=== PATIENT | male | born 1945 | race Hispanic/Latino ===

== ENCOUNTER 2017-12-09 05:47 | Observation (INO) | payer OTHER ==
[2017-12-05 13:06] VITALS: BP 138/60
[2017-12-05 13:11] LABS: BASOPHILS % (AUTO) 0.4 % (0.0-5.0); EOSINOPHILS % (AUTO) 2.8 % (0.0-8.0); HEMATOCRIT 36.8 % (42-54); LYMPHOCYTES % (AUTO) 11.9 % (21.0-51.0); MEAN CORPUSCULAR HGB CONC 31.4 g/dL (32.0-36.0); MEAN CORPUSCULAR VOLUME 82.8 fL (79-99); NEUTROPHILS % (AUTO) 73.9 % (40.0-77.0); PLATELET COUNT (AUTO) 120 K/uL (130-400); RED BLOOD CELL COUNT(AUTO) 4.45 MIL/uL (4.50-6.20); RED CELL DISTRIBUTION WIDTH 18.5 % (11.0-15.5); WHITE BLOOD COUNT (AUTO) 5.1 K/uL (4.8-10.8)
[2017-12-05 13:18] LABS: CREATININE 1.7 mg/dL (0.5-1.5)
[2017-12-05 13:33] LABS: APPEARANCE,URINE Clear (CLEAR); BILIRUBIN,URINE Negative (NEGATIVE); COLOR,URINE Yellow (YELLOW); GLUCOSE, URINE (UA) Negative (NEGATIVE); KETONES,URINE Negative (NEGATIVE); LEUKOCYTE ESTERASE ,URINE Trace (NEGATIVE); NITRATE,URINE Negative (NEGATIVE); OCCULT BLOOD,URINE Negative (NEGATIVE); PROTEIN,URINE Trace (NEGATIVE)
[2017-12-05 13:39] LABS: PROTHROMBIN TIME 10.5 SEC (9.6-11.6)
[2017-12-05 13:49] LABS: BACTERIA,URINE Rare /HPF (None Seen); RBC,URINE None Seen /HPF (0-1); WBC,URINE 0-1 /HPF (0-1)
[2017-12-05 13:50] LABS: SQUAMOUS EPITHELIAL CELL,UR 0-2 /HPF (0-2)
[~2017-12-09] VITALS: Ht 170.2 cm; Wt 70.0 kg
[2017-12-09] VITALS (13 sets, daily range): BP systolic 124–157; BP diastolic 75–104
[~2017-12-09 05:47] MED LIST: ACETAMINOPHEN 325 MG TAB PO PRN; AEC81 PO; ATOR40TA71 PO; CLOP75TA14 PO; FERR325T22 PO; ISOS30TA6 PO; LABE200T5 PO; LINA5TAB PO; LISI-613 PO; NITR.4 SL; PANT40TA25 PO; RANI150C4 PO; SODIUM CHLORIDE 0.9% 500ML 500 ML IV SCH
[2017-12-09] MEDS ORDERED: SODIUM CHLORIDE 0.9% 1000ML 1,000 ML IV SCH (06:00)
[2017-12-09] MEDS ORDERED: LABETALOL HCL 5 MG/ML 20ML VIAL IV ONE ×3 (07:37→16:17)
[2017-12-09] MEDS ORDERED: LABETALOL HCL 5 MG/ML 20ML VIAL IV SCH (07:45)
[2017-12-09] MEDS ORDERED: ONDANSETRON HCL 4 MG/2 ML VIAL ONE (09:18)
[2017-12-09 09:54] LABS: CREATININE 1.6 mg/dL (0.5-1.5); MAGNESIUM 1.7 mg/dL (1.80-2.40); POTASSIUM 5.9 mmol/L (3.5-5.1)
[2017-12-09 10:43] LABS: CREATININE 1.6 mg/dL (0.5-1.5); MAGNESIUM 1.7 mg/dL (1.80-2.40); POTASSIUM 5.7 mmol/L (3.5-5.1)
[2017-12-09] MEDS ORDERED: MAGNESIUM 2GM PREMIX 50ML 50 ML IV SCH (11:00)
[2017-12-09] MEDS ORDERED: LOPERAMIDE HCL 2 MG CAP PO SCH (11:15)
[2017-12-09] MEDS ORDERED: LIDOCAINE HCL-MPF 2% 5ML VIAL ONE (13:59)
[2017-12-09] MEDS ORDERED: IOHEXOL-350 50ML VIAL IV ONE (13:59)
[2017-12-09] MEDS ORDERED: IOHEXOL 350 MG/ML 100ML INFUS..BTL IV ONE (13:59)
[2017-12-09] MEDS ORDERED: NITROGLYCERIN 5 MG/ML 10 ML VIAL IV ONE (13:59)
[2017-12-09] MEDS ORDERED: SODIUM BICARB 50MEQ 50ML VIAL ONE (14:07)
[2017-12-09] MEDS ORDERED: MIDAZOLAM HCL 1 MG/ML 2ML VIAL ONE ×2 (14:57→15:29)
[2017-12-09] MEDS ORDERED: MEPERIDINE-PF 25 MG/ML SYG ONE ×2 (14:57→15:29)
[2017-12-09] MEDS ORDERED: HEPARIN SODIUM 1000UNIT/ML 10ML VIAL ONE (14:58)
[2017-12-09] MEDS ORDERED: IOHEXOL-350 75 ML VIAL IV ONE (15:02)
[2017-12-09] MEDS ORDERED: DEXTROSE 50%-WATER 50 ML DISP.SYRIN IV PRN (16:30)
[2017-12-09] MEDS ORDERED: GLUCAGON 1MG KIT 1 MG ML IM PRN (16:30)
[2017-12-09] MEDS: INSULIN HUMULIN R 100 UNIT/ML 3ML SQ SCH ×2 (16:30→21:00)
[2017-12-09] MEDS ORDERED: NITROGLYCERIN 0.4 MG SL TAB SL SCH (16:30)
[2017-12-09] MEDS ORDERED: ACETAMINOPHEN-CODEINE 300/30MG TAB PO PRN ×2 (16:30)
[2017-12-09] MEDS ORDERED: ONDANSETRON HCL 4 MG/2 ML VIAL IVP PRN (16:30)
[2017-12-09] MEDS ORDERED: LABETALOL HCL 5 MG/ML 20ML VIAL IV PRN (16:45)
[2017-12-09] MEDS ORDERED: MORPHINE SULFATE 5 MG/ML VIAL IV PRN (17:15)
[2017-12-09] MEDS ORDERED: MORPHINE SULFATE 4 MG/1ML SYG IV PRN (17:15)
[2017-12-09] MEDS ORDERED: FAMOTIDINE 20MG TAB 20 MG TAB PO SCH (21:00)
[2017-12-09] MEDS: AMLODIPINE BESYLATE 5 MG TAB PO SCH (21:05)
[2017-12-09] MEDS: LABETALOL HCL 200 MG TABLET PO SCH (21:05)
[2017-12-10] VITALS: BP 131/71
[2017-12-10 03:41] VITALS: BP 101/71
[2017-12-10 04:05] LABS: HEMATOCRIT 35.8 % (42-54); MEAN CORPUSCULAR HEMOGLOBIN 27.1 pg (27.0-33.0); MEAN CORPUSCULAR HGB CONC 32.9 g/dL (32.0-36.0); MEAN CORPUSCULAR VOLUME 82.3 fL (79-99); NUCLEATED RED BLOOD CELLS 0.1 % (0.0-0.19); PLATELET COUNT (AUTO) 99 K/uL (130-400); RED BLOOD CELL COUNT(AUTO) 4.35 MIL/uL (4.50-6.20); RED CELL DISTRIBUTION WIDTH 17.8 % (11.0-15.5); WHITE BLOOD COUNT (AUTO) 4.1 K/uL (4.8-10.8)
[2017-12-10 04:12] LABS: CREATININE 1.5 mg/dL (0.5-1.5); POTASSIUM 5.5 mmol/L (3.5-5.1)
[2017-12-10] MEDS: INSULIN HUMULIN R 100 UNIT/ML 3ML SQ SCH (06:26)
[2017-12-10 07:00] VITALS: BP 114/67
[2017-12-10] MEDS ORDERED: ATORVASTATIN CALCIUM 40 MG TABLET PO SCH (09:00)
[2017-12-10] MEDS ORDERED: ASPIRIN 81 MG EC TAB PO SCH (09:00)
[2017-12-10] MEDS ORDERED: CLOPIDOGREL BISULFATE 75 MG TAB PO SCH (09:00)
[2017-12-10] MEDS ORDERED: ISOSORBIDE MONO 30MG TAB SR PO SCH (09:00)
[2017-12-10] MEDS ORDERED: LINAGLIPTIN 5 MG TABLET PO SCH (09:00)
[2017-12-10] MEDS ORDERED: PANTOPRAZOLE SODIUM 40 MG TABLET.DR PO SCH (09:00)
[2017-12-10] MEDS ORDERED: FERROUS SULFATE 325 MG TABLET.DR PO SCH (09:00)
[2017-12-10] MEDS ORDERED: LISINOPRIL 20 MG TABLET PO SCH (09:00)
[2017-12-10] MEDS: AMLODIPINE BESYLATE 5 MG TAB PO SCH (09:32)
[2017-12-10] MEDS: LABETALOL HCL 200 MG TABLET PO SCH (09:36)
== END 2017-12-10 10:25 | disposition home or self-care (01) ==
LOC: DAH 05:47 → 2AH 05:48 → DAH 05:48 → UNDOADMOB 09:48 → 2AH 09:48
PROVIDERS: ADMIT Internal Medicine Cardiovascular Disease; ATTEND Internal Medicine Cardiovascular Disease
DX: I25.119 Atherosclerotic heart disease of native coronary artery with unspecified angina pectoris (principal); I25.5 Ischemic cardiomyopathy; I13.0 Hypertensive heart and chronic kidney disease with heart failure and stage 1 through stage 4 chronic kidney disease, or unspecified chronic kidney disease; E11.22 Type 2 diabetes mellitus with diabetic chronic kidney disease; N18.9 Chronic kidney disease, unspecified; I50.42 Chronic combined systolic (congestive) and diastolic (congestive) heart failure; I21.3 ST elevation (STEMI) myocardial infarction of unspecified site; E78.5 Hyperlipidemia, unspecified; Z99.2 Dependence on renal dialysis; Z95.5 Presence of coronary angioplasty implant and graft; I44.7 Left bundle-branch block, unspecified; Z83.3 Family history of diabetes mellitus; Z82.49 Family history of ischemic heart disease and other diseases of the circulatory system; F32.9 Major depressive disorder, single episode, unspecified; E11.51 Type 2 diabetes mellitus with diabetic peripheral angiopathy without gangrene; Z87.891 Personal history of nicotine dependence; Z79.01 Long term (current) use of anticoagulants; Z79.899 Other long term (current) drug therapy; I73.9 Peripheral vascular disease, unspecified
CPT/HCPCS: 36415 ×3; 71045; 80048 ×4; 81001; 82948 ×5; 83735 ×2; 85025; 85027; 85347 ×2; 85610; 85730; 93005; 93455; 96365; 96375; 96376; A4606; C1725 ×2; C1760; C1769 ×4; C1874; C1887 ×3; C1893; C1894 ×2; C9604; G0378 ×29; J1644 ×3; J2175 ×2; J2250 ×2; J2270; J2405; J3475; J3490 ×7; J7030; Q9965; Q9967 ×3; 96360; 99156; 99157

== ENCOUNTER 2018-07-14 14:00 | Emergency (ER) | payer OTHER ==
[~2018-07-14 14:00] MED LIST changes: -ACETAMINOPHEN 325 MG TAB PO PRN; -LABE200T5 PO; -LISI-613 PO; -SODIUM CHLORIDE 0.9% 500ML 500 ML IV SCH
[2018-07-14 14:55] LABS: BASOPHILS % (AUTO) 0.3 % (0.0-5.0); LYMPHOCYTES % (AUTO) 9.4 % (21.0-51.0); MEAN CORPUSCULAR HEMOGLOBIN 25.9 pg (27.0-33.0); MEAN CORPUSCULAR VOLUME 80.9 fL (79-99); MONOCYTES % (AUTO) 10.2 % (3.0-13.0); NEUTROPHILS % (AUTO) 79.1 % (40.0-77.0); PLATELET COUNT (AUTO) 141 K/uL (130-400); RED CELL DISTRIBUTION WIDTH 20.3 % (11.0-15.5); WHITE BLOOD COUNT (AUTO) 5.6 K/uL (4.8-10.8)
[2018-07-14 15:13] LABS: ALBUMIN 3.7 g/dL (3.5-5.0); BILIRUBIN,TOTAL 1.2 mg/dL (0.2-1.0); CREATININE 1.3 mg/dL (0.5-1.5); POTASSIUM 4.3 mmol/L (3.5-5.1); TOTAL PROTEIN, SERUM 7.2 g/dL (6.0-8.3)
[2018-07-14 16:36] LABS: APPEARANCE,URINE Clear (CLEAR); BILIRUBIN,URINE Small (NEGATIVE); COLOR,URINE Dark Yellow (YELLOW); GLUCOSE, URINE (UA) Negative (NEGATIVE); KETONES,URINE Trace mg/dL (NEGATIVE); LEUKOCYTE ESTERASE ,URINE Small (NEGATIVE); NITRATE,URINE Negative (NEGATIVE); OCCULT BLOOD,URINE Negative (NEGATIVE); PH,URINE 5.5 (5.0-8.0); PROTEIN,URINE POS 1+ mg/dL (NEGATIVE)
[2018-07-14 16:57] LABS: RBC,URINE None Seen /HPF (0-1)
[2018-07-14 16:58] LABS: BACTERIA,URINE Few /HPF (None Seen); SQUAMOUS EPITHELIAL CELL,UR 0-2 /HPF (0-2)
[2018-07-14] MEDS ORDERED: IOHEXOL-350 75 ML VIAL IV ONE (17:27)
== END 2018-07-14 18:54 | disposition home or self-care (01) ==
LOC: EDH 14:00
DX: R10.32 Left lower quadrant pain (principal); I10 Essential (primary) hypertension; I25.10 Atherosclerotic heart disease of native coronary artery without angina pectoris; E78.5 Hyperlipidemia, unspecified; Z95.1 Presence of aortocoronary bypass graft; Z72.0 Tobacco use
CPT/HCPCS: 36415; 74177; 76700; 80053; 81001; 82550; 83690; 84484; 85025; 93005; 99285; Q9967

== ENCOUNTER 2018-10-05 07:44 | Observation (INO) | payer OTHER ==
[2018-10-02 10:40] VITALS: BP 107/60
[2018-10-02 11:07] LABS: BASOPHILS % (AUTO) 0.4 % (0.0-5.0); EOSINOPHILS % (AUTO) 1.4 % (0.0-8.0); HEMATOCRIT 41.1 % (42-54); LYMPHOCYTES % (AUTO) 8.8 % (21.0-51.0); MEAN CORPUSCULAR HEMOGLOBIN 26.8 pg (27.0-33.0); MEAN CORPUSCULAR HGB CONC 32.4 g/dL (32.0-36.0); MEAN CORPUSCULAR VOLUME 82.9 fL (79-99); MONOCYTES % (AUTO) 11.6 % (3.0-13.0); NEUTROPHILS % (AUTO) 77.8 % (40.0-77.0); PLATELET COUNT (AUTO) 121 K/uL (130-400); RED BLOOD CELL COUNT(AUTO) 4.96 MIL/uL (4.50-6.20); WHITE BLOOD COUNT (AUTO) 4.8 K/uL (4.8-10.8)
[2018-10-02 11:14] LABS: CREATININE 1.2 mg/dL (0.5-1.5); POTASSIUM 4.1 mmol/L (3.5-5.1)
--- NOTE | 2018-10-02 14:10 | NUR ---
NOTE ABNORMAL EKG REPORTED TO DR. CASTRO. PER DR. CASTRO, OKAY TO PROCEED WITH PLANNED PROCEDURE. PER DR. CASTRO, CALL COMPANY OF PT'S AICD DEVICE AND ASK HOW TO TURN AICD OFF DURING SURGERY. PER PT'S H&P FROM PAST ADMISSION, PT'S DEVICE IS [employer]. CALLED [employer], SPOKE WITH REP TEAGUE. PER HO, USE DONUT MAGNET TO TURN OFF DEVICE. TAPE MAGNET OVER DEVICE PRIOR TO SX AND LEAVE IT ON, THEN REMOVE AFTER SX. NOTIFIED MARIELOS LE RN, DAYPT THREAD MACHINE OPERATOR. Addendum: 10/02/18 at 1421 by RAMOS DOUGLAS RN RN ADDENDUM: MAGNETS AVAILABLE AT [facility]
--- NOTE | 2018-10-02 15:19 | NUR ---
LABS PLATELET LEVEL REPORTED TO DR. BARNHART. NO ORDERS RECEIVED. PROCEED WITH PLANNED PROCEDURE.
[2018-10-05] VITALS (20 sets, daily range): BP systolic 124–189; BP diastolic 10–103
[~2018-10-05] VITALS: Ht 167.6 cm; Wt 67.5 kg
[~2018-10-05 07:44] MED LIST changes: +FURO40TA5 PO; -ISOS30TA6 PO; +LABE200T5 PO; -NITR.4 SL; +POTA10TA11 PO; -RANI150C4 PO; +SUPER B COMPLEX PO
--- NOTE | 2018-10-05 09:00 | NUR ---
POTENTIAL FOR INFECTION: SHAVED LEFT INGUINAL AREA PER YVETTE SANTOS, FOLLOWED BY WIPING WITH SUNIN: 2% CHLORHEXIDINE GLUCONATE CLOTH PATIENTS PRE-OP SKIN PREP.
[2018-10-05] MEDS ORDERED: SODIUM CHLORIDE 0.9% 1000ML 1,000 ML IV ONE (09:28)
[2018-10-05] MEDS: CEFAZOLIN SODIUM 1 GM VIAL ONE ×2 (09:41→11:00)
[2018-10-05] MEDS ORDERED: OXYTOCIN 10 USP UNITS/ML ONE (10:29)
[2018-10-05] MEDS ORDERED: LIDOCAINE PF 2% 5ML ABBOJECT ONE (10:29)
[2018-10-05] MEDS ORDERED: LIDOCAINE HCL 4% LTA SOL 4 ML VIAL ONE (10:29)
[2018-10-05] MEDS ORDERED: MIDAZOLAM HCL 1 MG/ML 2ML VIAL ONE (10:29)
[2018-10-05] MEDS ORDERED: ROCURONIUM 10MG/1ML SYR 10 MG/ML ML ONE (10:30)
[2018-10-05] MEDS ORDERED: PROPOFOL 10 MG/ML 20ML VIAL IV ONE (10:30)
[2018-10-05] MEDS ORDERED: FENTANYL CITRATE PF 50 MCG/1 ML 2ML VIAL ONE (10:30)
[2018-10-05] MEDS ORDERED: BUPIVACAINE/PF 0.25% 30ML VIAL IJ ONE (11:05)
[2018-10-05] MEDS ORDERED: GLYCOPYRROLATE 1 MG/5 ML SYRINGE ONE (11:24)
[2018-10-05] MEDS ORDERED: NEOSTIGMINE 5MG/5ML SYR IV ONE (11:24)
[2018-10-05] MEDS ORDERED: ONDANSETRON HCL 4 MG/2 ML VIAL ONE (11:34)
[2018-10-05] MEDS ORDERED: FLUMAZENIL 0.1MG/1ML 5ML VIAL IV ONE (12:15)
[2018-10-05] MEDS ORDERED: ONDANSETRON HCL 4 MG/2 ML VIAL IVP PRN (14:45)
[2018-10-05] MEDS: SODIUM CHLORIDE 0.9% 1000ML 1,000 ML IV SCH (14:45)
[2018-10-05] MEDS ORDERED: MORPHINE SULFATE 2 MG/ML 1ML SYG IVP PRN (14:45)
[2018-10-05] MEDS ORDERED: SODIUM CHLORIDE 0.9% 1000ML 1,000 ML IV SCH (14:45)
[2018-10-05] MEDS: CEFAZOLIN SODIUM 1 GM VIAL IVP SCH ×2 (14:50→22:20)
[2018-10-05] MEDS: ATORVASTATIN CALCIUM 40 MG TABLET PO SCH (22:18)
[2018-10-05] MEDS: LABETALOL HCL 200 MG TABLET PO SCH (22:18)
[2018-10-06] VITALS: BP 165/78
[2018-10-06 04:00] VITALS: BP 163/77
[2018-10-06] MEDS: SODIUM CHLORIDE 0.9% 1000ML 1,000 ML IV SCH (04:05)
[2018-10-06] MEDS: ACETAMINOPHEN-CODEINE 300/30MG TAB PO PRN ×2 (05:00→20:39)
[2018-10-06] MEDS ORDERED: PANTOPRAZOLE SODIUM 40 MG TABLET.DR PO SCH (07:30)
[2018-10-06] MEDS ORDERED: LINAGLIPTIN 5 MG TABLET PO SCH (08:00)
[2018-10-06] MEDS ORDERED: ASPIRIN 81MG TAB.CHEW PO SCH (08:00)
[2018-10-06 08:33] VITALS: BP 140/88
[2018-10-06] MEDS: LABETALOL HCL 200 MG TABLET PO SCH ×2 (08:38→20:09)
[2018-10-06] MEDS ORDERED: POTASSIUM CHLORIDE 10 MEQ/TAB.SA PO SCH (09:00)
[2018-10-06] MEDS ORDERED: CLOPIDOGREL BISULFATE 75 MG TAB PO SCH (09:00)
[2018-10-06] MEDS ORDERED: FUROSEMIDE 40 MG TABLET PO SCH (09:00)
[2018-10-06 11:55] VITALS: BP 97/66
--- NOTE | 2018-10-06 15:07 | NUR ---
DCP CM met with pt discussed dc plans. Pt is independent prior to surgery, lives at home alone. Denies any equipments/services. Pt feels safe to go back home, still drives, arranges own needs. DC plan to home once stable. CM to cont to follow up. Addendum: 10/06/18 at 1508 by YOLY ORNELAS LVN CM Amended: Links added.
[2018-10-06 15:57] VITALS: BP 120/75
--- NOTE | 2018-10-06 18:22 | NUR ---
Made multiple attempts to contact Dr. Al to discharge patient and for he can speak to family about recent surgery. Was not able to contact Dr. Al. Confirmed with ER and unit staff that Dr. Al is transfer station attendant. At 1600, I received word that Dr. Pretty will be rounding for Dr. Al after shift change. Patient and family are a little upset that it has taken all day for the patient to be discharged, considering it was just a hernia repair.
[2018-10-06 20:00] VITALS: BP 148/95
[2018-10-06] MEDS: ATORVASTATIN CALCIUM 40 MG TABLET PO SCH (20:09)
== END 2018-10-06 21:40 | disposition home or self-care (01) ==
LOC: DAH 07:44 → DAHIP 07:45 → DAH 07:45 → 4CH 13:01
PROVIDERS: ADMIT Surgery; ATTEND Surgery
DX: K40.90 Unilateral inguinal hernia, without obstruction or gangrene, not specified as recurrent (principal); D17.9 Benign lipomatous neoplasm, unspecified; Z79.899 Other long term (current) drug therapy
CPT/HCPCS: 36415; 49507; 80048; 82948 ×8; 85025; 88302; 93005; 96374; 96375; 96376; A4450; A4452; A4606; A4649; C1781; G0378 ×37; J0690 ×3; J2001; J2250; J2405; J2590; J2704; J2710; J3010; J3490 ×3; J7030 ×2

== ENCOUNTER 2018-10-12 17:08 | Inpatient (IN) | payer OTHER ==
[~2018-10-12] VITALS: Ht 170.2 cm; Wt 66.6 kg
[2018-10-12] MEDS ORDERED: KETOROLAC TROMETHAMINE 15MG/ML ONE (18:00)
[2018-10-12] MEDS ORDERED: SODIUM CHLORIDE 0.9% 500ML 500 ML IV ONE (18:00)
[2018-10-12 18:21] LABS: BASOPHILS % (AUTO) 0.2 % (0.0-5.0); EOSINOPHILS % (AUTO) 0.8 % (0.0-8.0); HEMATOCRIT 38.1 % (42-54); MEAN CORPUSCULAR HEMOGLOBIN 26.6 pg (27.0-33.0); MONOCYTES % (AUTO) 11.6 % (3.0-13.0); NEUTROPHILS % (AUTO) 78.4 % (40.0-77.0); PLATELET COUNT (AUTO) 147 K/uL (130-400); RED BLOOD CELL COUNT(AUTO) 4.59 MIL/uL (4.50-6.20); RED CELL DISTRIBUTION WIDTH 20.6 % (11.0-15.5); WHITE BLOOD COUNT (AUTO) 5.9 K/uL (4.8-10.8)
[2018-10-12 18:36] LABS: CREATININE 1.2 mg/dL (0.5-1.5); POTASSIUM 3.8 mmol/L (3.5-5.1)
[2018-10-12 18:41] LABS: ALBUMIN 3.3 g/dL (3.5-5.0); BILIRUBIN,TOTAL 2.4 mg/dL (0.2-1.0); TOTAL PROTEIN, SERUM 6.9 g/dL (6.0-8.3)
[2018-10-12 18:43] LABS: APPEARANCE,URINE Clear (CLEAR); BILIRUBIN,URINE Moderate (NEGATIVE); COLOR,URINE Dark Yellow (YELLOW); GLUCOSE, URINE (UA) Negative (NEGATIVE); KETONES,URINE Negative (NEGATIVE); LEUKOCYTE ESTERASE ,URINE Small (NEGATIVE); NITRATE,URINE Positive (NEGATIVE); OCCULT BLOOD,URINE Negative (NEGATIVE); PH,URINE 5.5 (5.0-8.0); PROTEIN,URINE POS 1+ mg/dL (NEGATIVE)
[2018-10-12 18:45] LABS: INR 1.16 (0.85-1.15); PARTIAL THROMBOPLASTIN TIME 31.6 SEC (26.3-35.5); PROTHROMBIN TIME 12.1 SEC (9.6-11.6)
[2018-10-12 19:04] LABS: BACTERIA,URINE Rare /HPF (None Seen); HYALINE CASTS, URINE 0-1 /LPF (0-1 /LPF); RBC,URINE 0-1 /HPF (0-1); SQUAMOUS EPITHELIAL CELL,UR Few /HPF (0-2)
[2018-10-12] MEDS ORDERED: ZOSYN 3.375GM+NS 50ML 50 ML IV ONE (20:21)
[2018-10-12] MEDS ORDERED: VANCOMYCIN 1GM+NS 250ML 250 ML IV ONE ×2 (20:58→21:01)
[2018-10-12] MEDS ORDERED: IPRATROPIUM/ALBUTEROL SULFATE 3 ML SOLUTION IH ONE (22:10)
[2018-10-13 03:12] LABS: CREATININE 1.3 mg/dL (0.5-1.5); POTASSIUM 4.5 mmol/L (3.5-5.1)
[2018-10-13 03:17] LABS: BILIRUBIN,TOTAL 1.9 mg/dL (0.2-1.0); TOTAL PROTEIN, SERUM 6.5 g/dL (6.0-8.3)
[2018-10-13 03:24] LABS: BASOPHILS % (AUTO) 0.5 % (0.0-5.0); EOSINOPHILS % (AUTO) 1.7 % (0.0-8.0); HEMATOCRIT 37.5 % (42-54); LYMPHOCYTES % (AUTO) 8.5 % (21.0-51.0); MEAN CORPUSCULAR HGB CONC 31.4 g/dL (32.0-36.0); NEUTROPHILS % (AUTO) 76.3 % (40.0-77.0); PLATELET COUNT (AUTO) 152 K/uL (130-400); RED BLOOD CELL COUNT(AUTO) 4.52 MIL/uL (4.50-6.20); RED CELL DISTRIBUTION WIDTH 21.1 % (11.0-15.5); WHITE BLOOD COUNT (AUTO) 5.9 K/uL (4.8-10.8)
[2018-10-13] MEDS ORDERED: VANCOMYCIN PROTOCOL PER PHARMACY IV SCH (03:30)
[2018-10-13] MEDS ORDERED: PHARMACY COMMUNICATION MISC SCH (03:30)
[2018-10-13] MEDS ORDERED: ONDANSETRON HCL 4 MG/2 ML VIAL IVP PRN (03:30)
[2018-10-13] MEDS: ZOSYN 3.375GM+NS 50ML 50 ML IV SCH ×3 (04:00→19:55)
[2018-10-13] MEDS ORDERED: ZOSYN 3.375GM+NS 50ML 50 ML IV ONE (04:06)
[2018-10-13 05:05] VITALS: BP 141/108
--- NOTE | 2018-10-13 05:05 | NUR ---
Admission note: Admitted to floor per stretcher. Fully awake and responsive. Can amb indep , but was advised to call the staff / inspector automatic typewriter whenever he gets up. Pt. agreed. VS checked and recorded. Assessment done. ( See CPO[facility] flow chart for full assessment). Plan of care initiated. Oriented to room and used of call light. Policies and procedures explained. Verbalized understanding. IV site to LAC #20 gauge , SL - patent and intact. Photo taken to [facility] at [facility] ( s/p hernia repair) and attached to chart. Denies feeling of discomfort at this time. No apparent distress noted. Cared for and needs provided.
[2018-10-13] MEDS ORDERED: ACET1TAB12 PO (05:40)
[2018-10-13 05:53] LABS: HEMATOCRIT 37.4 % (42-54); MEAN CORPUSCULAR HEMOGLOBIN 26.1 pg (27.0-33.0); MEAN CORPUSCULAR HGB CONC 31.5 g/dL (32.0-36.0); MEAN CORPUSCULAR VOLUME 82.8 fL (79-99); PLATELET COUNT (AUTO) 163 K/uL (130-400); RED BLOOD CELL COUNT(AUTO) 4.52 MIL/uL (4.50-6.20); RED CELL DISTRIBUTION WIDTH 20.3 % (11.0-15.5); WHITE BLOOD COUNT (AUTO) 6.3 K/uL (4.8-10.8)
[2018-10-13 06:25] LABS: ALBUMIN 3.1 g/dL (3.5-5.0); CREATININE 1.3 mg/dL (0.5-1.5); POTASSIUM 4.5 mmol/L (3.5-5.1); TOTAL PROTEIN, SERUM 6.6 g/dL (6.0-8.3)
[2018-10-13] MEDS ORDERED: COMPOUND IV REFRIGERATED 1 EACH IVSOLN MISC PRN (06:45)
[2018-10-13 07:00] VITALS: BP 147/104
[2018-10-13] MEDS: VANCOMYCIN 1.25 GM in SODIUM CHLORIDE 0.9% 250 ML IV SCH (09:30)
[2018-10-13 11:00] VITALS: BP 113/72
--- NOTE | 2018-10-13 14:43 | NUR ---
DCP CM met with pt discussed dc plans. Pt is independent prior to admission, lives at home alone, sister lives close by. Denies any equipments/services. Pt feels safe to go back home, still drives, sister Rebecca able to assist with transportation as necessary. DC plan to home once stable. CM to cont to follow up. Addendum: 10/13/18 at 1444 by YOLY ORNELAS LVN CM Amended: Links added.
[2018-10-13 16:00] VITALS: BP 158/73
[2018-10-13 20:00] VITALS: BP 152/106
[2018-10-14] VITALS (8 sets, daily range): BP systolic 135–159; BP diastolic 81–111
[2018-10-14] MEDS: ZOSYN 3.375GM+NS 50ML 50 ML IV SCH ×3 (03:47→21:22)
[2018-10-14] MEDS: VANCOMYCIN 1.25 GM in SODIUM CHLORIDE 0.9% 250 ML IV SCH (09:32)
[2018-10-14] MEDS ORDERED: ACETAMINOPHEN-CODEINE 300/30MG TAB PO PRN (18:00)
[2018-10-14] MEDS ORDERED: LABETALOL HCL 200 MG TABLET ONE (18:11)
--- NOTE | 2018-10-14 18:13 | NUR ---
BLOOD PRESSURE Home medications were not resumed and systolic blood pressure in the 160S; diastolic blood pressure IN THE 110S. Dr. Wagner was notified. Stated to resume home medications. Administered a dose of labetalol 200mg PO.
[2018-10-14] MEDS: LABETALOL HCL 200 MG TABLET PO SCH ×2 (18:15→21:22)
--- NOTE | 2018-10-14 18:30 | NUR ---
DR. BARNHART Updated Dr. Barnhart that patient's area around incision to abdomen is growing and that it is hard. Dr. Barnhart stated he will see patient in AM. He was made aware area of hardness around incision has grown. repeated he will see pt tomorrow and to inform patient. Patient has been updated.
--- NOTE | 2018-10-14 18:59 | NUR ---
NURSING NOTE Patient's blood pressure is decreasing. Latest obtained at 1855 was 149/100. Apical pulse is 60. Patient is aware the surgeon Dr. Al will come to see him tomorrow. He states his area around incision to left lower quadrant has increased in size and it is also hard. However, he adds that the area is not painful. He has bowel sounds X 4, normoactive, and reports a good bowel movement today. Denies any nausea. He has a good appetite. Dr. Wagner was called to his cell phone to inform him that surgeon will not see patient until tomorrow, but no answer; went to voicemail. Left voice message for Dr. Wagner stating to please call nurse to be updated on this case; pending for Dr. Wagner to call back.
[2018-10-15 03:30] VITALS: BP 165/98
[2018-10-15] MEDS: ZOSYN 3.375GM+NS 50ML 50 ML IV SCH ×3 (05:33→21:36)
[2018-10-15 08:00] VITALS: BP 163/98
[2018-10-15] MEDS: LINAGLIPTIN 5 MG TABLET PO SCH (09:00)
[2018-10-15] MEDS: VITAMIN B COMPLEX 1 CAPSULE PO SCH (10:01)
[2018-10-15] MEDS: CLOPIDOGREL BISULFATE 75 MG TAB PO SCH (10:02)
[2018-10-15] MEDS: PANTOPRAZOLE SODIUM 40 MG TABLET.DR PO SCH (10:02)
[2018-10-15] MEDS: LABETALOL HCL 200 MG TABLET PO SCH ×2 (10:02→21:36)
[2018-10-15] MEDS: ASPIRIN 81 MG EC TAB PO SCH (10:02)
[2018-10-15] MEDS: FERROUS SULFATE 325 MG TABLET.DR PO SCH (10:03)
[2018-10-15] MEDS: FUROSEMIDE 40 MG TABLET PO SCH (10:03)
[2018-10-15] MEDS: POTASSIUM CHLORIDE 10 MEQ/TAB.SA PO SCH (10:03)
[2018-10-15] MEDS: ATORVASTATIN CALCIUM 40 MG TABLET PO SCH (10:03)
[2018-10-15] MEDS: VANCOMYCIN 1.25 GM in SODIUM CHLORIDE 0.9% 250 ML IV SCH (10:04)
[2018-10-15] MEDS ORDERED: SODIUM CHLORIDE 0.9% 250 ML IV ONE (10:09)
[2018-10-15 12:00] VITALS: BP 150/90
[2018-10-15 16:00] VITALS: BP 133/78
--- NOTE | 2018-10-15 16:05 | NUR ---
SURGICAL CONSENT Dr. Al evaluated patient this morning. Gave orders to obtain consent for incision and drainage of abdominal hematoma. Consent obtained at this time and filed in chart. Incision and drainage of abdominal hematoma will be tomorrow.
[2018-10-15 20:00] VITALS: BP 135/76
--- NOTE | 2018-10-15 22:06 | NUR ---
CARDIAC CLEARANCE Paged MD Wagner to inform him of patient having an I&D of abdominal hematoma. Patient has history of cardiac problems, called to ask if patient needed a cardiac clearance before procedure. MD Wagner stated patient does not need cardiac clearance.
[2018-10-16] VITALS (18 sets, daily range): BP systolic 100–160; BP diastolic 50–98
[2018-10-16] MEDS: ZOSYN 3.375GM+NS 50ML 50 ML IV SCH ×3 (04:42→21:00)
[2018-10-16 06:42] LABS: MEAN CORPUSCULAR HEMOGLOBIN 26.8 pg (27.0-33.0); MEAN CORPUSCULAR HGB CONC 32.1 g/dL (32.0-36.0); MEAN CORPUSCULAR VOLUME 83.7 fL (79-99); NUCLEATED RED BLOOD CELLS 0.1 % (0.0-0.19); PLATELET COUNT (AUTO) 156 K/uL (130-400); RED BLOOD CELL COUNT(AUTO) 4.54 MIL/uL (4.50-6.20); RED CELL DISTRIBUTION WIDTH 20.8 % (11.0-15.5); WHITE BLOOD COUNT (AUTO) 6.9 K/uL (4.8-10.8)
[2018-10-16 06:53] LABS: ALBUMIN 2.9 g/dL (3.5-5.0); CREATININE 1.1 mg/dL (0.5-1.5); MAGNESIUM 1.8 mg/dL (1.80-2.40); POTASSIUM 4.2 mmol/L (3.5-5.1); TOTAL PROTEIN, SERUM 6.8 g/dL (6.0-8.3)
[2018-10-16 06:55] LABS: INR 1.09 (0.85-1.15); PARTIAL THROMBOPLASTIN TIME 29.6 SEC (26.3-35.5); PROTHROMBIN TIME 11.4 SEC (9.6-11.6)
[2018-10-16] MEDS: VANCOMYCIN 1.25 GM in SODIUM CHLORIDE 0.9% 250 ML IV SCH (09:00)
[2018-10-16] MEDS: ASPIRIN 81 MG EC TAB PO SCH (09:00)
[2018-10-16] MEDS: LINAGLIPTIN 5 MG TABLET PO SCH (09:00)
[2018-10-16] MEDS: CLOPIDOGREL BISULFATE 75 MG TAB PO SCH (09:00)
[2018-10-16] MEDS: LABETALOL HCL 200 MG TABLET PO SCH ×2 (09:03→21:00)
[2018-10-16] MEDS ORDERED: SODIUM CHLORIDE 0.9% 1000ML 1,000 ML IV ONE (10:15)
--- NOTE | 2018-10-16 11:21 | NUR ---
SURGERY Patient taken earlier to surgical suite for I&D of abdominal hematoma.
[2018-10-16] MEDS ORDERED: LIDOCAINE HCL MPF 1% 5ML VIAL ONE (13:55)
[2018-10-16] MEDS ORDERED: MIDAZOLAM HCL 1 MG/ML 2ML VIAL ONE (13:55)
[2018-10-16] MEDS ORDERED: FENTANYL CITRATE PF 50 MCG/1 ML 2ML VIAL ONE (13:56)
[2018-10-16] MEDS ORDERED: PROPOFOL 10 MG/ML 20ML VIAL IV ONE (13:56)
[2018-10-16] MEDS ORDERED: SUCCINYLCHOLINE 200MG/10ML SYR ONE (13:57)
[2018-10-16] MEDS ORDERED: PHENYLEPHRINE HCL 10 MG/ML 1ML VIAL IV ONE (14:21)
[2018-10-16] MEDS ORDERED: MORPHINE SULFATE 4 MG/1ML SYG IV PRN (14:30)
[2018-10-16] MEDS ORDERED: CEFAZOLIN SODIUM 1 GM VIAL ONE ×2 (15:01)
[2018-10-16] MEDS ORDERED: BENZONATATE 100 MG CAPSULE PO PRN (16:00)
[2018-10-16] MEDS: VITAMIN B COMPLEX 1 CAPSULE PO SCH (16:16)
[2018-10-16] MEDS: ATORVASTATIN CALCIUM 40 MG TABLET PO SCH (16:16)
[2018-10-16] MEDS: FERROUS SULFATE 325 MG TABLET.DR PO SCH (16:17)
[2018-10-16] MEDS: POTASSIUM CHLORIDE 10 MEQ/TAB.SA PO SCH (16:17)
[2018-10-16] MEDS: PANTOPRAZOLE SODIUM 40 MG TABLET.DR PO SCH (16:17)
[2018-10-16] MEDS: FUROSEMIDE 40 MG TABLET PO SCH (16:18)
[2018-10-16] MEDS: VANCOMYCIN 500MG+NS 100ML 100 ML IV SCH (20:00)
[2018-10-17] VITALS: BP 119/70
[2018-10-17 04:00] VITALS: BP 145/80
[2018-10-17] MEDS: ZOSYN 3.375GM+NS 50ML 50 ML IV SCH ×3 (05:06→20:44)
[2018-10-17 07:00] VITALS: BP 125/75
[2018-10-17] MEDS: VANCOMYCIN 500MG+NS 100ML 100 ML IV SCH ×2 (07:31→20:44)
[2018-10-17] MEDS: FUROSEMIDE 40 MG TABLET PO SCH (07:31)
[2018-10-17] MEDS: FERROUS SULFATE 325 MG TABLET.DR PO SCH (07:31)
[2018-10-17] MEDS: VITAMIN B COMPLEX 1 CAPSULE PO SCH (07:31)
[2018-10-17] MEDS: CLOPIDOGREL BISULFATE 75 MG TAB PO SCH (07:31)
[2018-10-17] MEDS: ASPIRIN 81 MG EC TAB PO SCH (07:31)
[2018-10-17] MEDS: LABETALOL HCL 200 MG TABLET PO SCH ×2 (07:31→20:49)
[2018-10-17] MEDS: POTASSIUM CHLORIDE 10 MEQ/TAB.SA PO SCH (07:32)
[2018-10-17] MEDS: ATORVASTATIN CALCIUM 40 MG TABLET PO SCH (07:32)
[2018-10-17] MEDS: LINAGLIPTIN 5 MG TABLET PO SCH (07:32)
[2018-10-17] MEDS: PANTOPRAZOLE SODIUM 40 MG TABLET.DR PO SCH (07:32)
--- NOTE | 2018-10-17 08:00 | NUR ---
ASSESSMENT PT IS AAOX3 DENIES CP DENIES SOB DENIES NV NO COMPLAINTS RESTING IN BED. NOTED LEFT GROIN DRESSING IN PLACE, CLEAN DRY AND INTACT. DENIES PAIN TO SITE. NO VISIBLE SIGNS OF DISTRESS NOTED, CALL LIGHT WITHIN REACH.
[2018-10-17 11:00] VITALS: BP 116/73
--- NOTE | 2018-10-17 13:53 | NUR ---
DR BARNHART ROUNDED REMOVED DRESSING TO LEFT GROIN. JOIE INTACT, LEFT OPEN TO AIR. NO OOZING NO DRAIANGE NOTED. BRUISING NOTED AROUND SITE, AREA FIRM. DR BARNHART STATES THIS WILL SUBSIDE WITH TIME.
[2018-10-17 16:00] VITALS: BP 138/64
[2018-10-17 20:00] VITALS: BP 139/78
--- NOTE | 2018-10-17 20:00 | NUR ---
EDEMA-LEFT INGUINAL/GROIN, S/P I&D HEMATOMA
[2018-10-18] VITALS: BP 148/77
[2018-10-18 04:00] VITALS: BP 128/72
[2018-10-18 07:00] VITALS: BP 148/63
[2018-10-18] MEDS: LINAGLIPTIN 5 MG TABLET PO SCH (09:00)
[2018-10-18] MEDS: ZOSYN 3.375GM+NS 50ML 50 ML IV SCH ×3 (09:12→20:38)
[2018-10-18] MEDS: ATORVASTATIN CALCIUM 40 MG TABLET PO SCH (09:13)
[2018-10-18] MEDS: VANCOMYCIN 500MG+NS 100ML 100 ML IV SCH ×2 (09:13→20:40)
[2018-10-18] MEDS: FERROUS SULFATE 325 MG TABLET.DR PO SCH (09:13)
[2018-10-18] MEDS: VITAMIN B COMPLEX 1 CAPSULE PO SCH (09:13)
[2018-10-18] MEDS: ASPIRIN 81 MG EC TAB PO SCH (09:13)
[2018-10-18] MEDS: CLOPIDOGREL BISULFATE 75 MG TAB PO SCH (09:13)
[2018-10-18] MEDS: LABETALOL HCL 200 MG TABLET PO SCH ×2 (09:14→20:43)
[2018-10-18] MEDS: POTASSIUM CHLORIDE 10 MEQ/TAB.SA PO SCH (09:14)
[2018-10-18] MEDS: PANTOPRAZOLE SODIUM 40 MG TABLET.DR PO SCH (09:14)
[2018-10-18] MEDS: FUROSEMIDE 40 MG TABLET PO SCH (09:15)
[2018-10-18 11:00] VITALS: BP 150/79
[2018-10-18 16:00] VITALS: BP 136/81
[2018-10-18 20:00] VITALS: BP 145/76
[2018-10-19] VITALS: BP 106/63
[2018-10-19 04:00] VITALS: BP 136/90
[2018-10-19] MEDS: ZOSYN 3.375GM+NS 50ML 50 ML IV SCH ×2 (05:02→12:41)
[2018-10-19 07:30] VITALS: BP 138/92
[2018-10-19] MEDS: VANCOMYCIN 500MG+NS 100ML 100 ML IV SCH (08:41)
[2018-10-19] MEDS: ATORVASTATIN CALCIUM 40 MG TABLET PO SCH (08:43)
[2018-10-19] MEDS: POTASSIUM CHLORIDE 10 MEQ/TAB.SA PO SCH (08:44)
[2018-10-19] MEDS: FERROUS SULFATE 325 MG TABLET.DR PO SCH (08:44)
[2018-10-19] MEDS: PANTOPRAZOLE SODIUM 40 MG TABLET.DR PO SCH (08:44)
[2018-10-19] MEDS: ASPIRIN 81 MG EC TAB PO SCH (08:45)
[2018-10-19] MEDS: CLOPIDOGREL BISULFATE 75 MG TAB PO SCH (08:45)
[2018-10-19] MEDS: VITAMIN B COMPLEX 1 CAPSULE PO SCH (08:45)
[2018-10-19] MEDS: LABETALOL HCL 200 MG TABLET PO SCH (08:45)
[2018-10-19] MEDS: FUROSEMIDE 40 MG TABLET PO SCH (08:46)
[2018-10-19] MEDS: LINAGLIPTIN 5 MG TABLET PO SCH ×2 (08:53→09:00)
[2018-10-19 11:00] VITALS: BP 141/79
--- NOTE | 2018-10-19 17:30 | NUR ---
PROVIDED WITH DISCHARGE INSTRUCTIONS, SCHEDULED F/U APPOINTMENTS AND PRESCRIPTION AND HE VERBALIZED UNDERSTANDING. IV ACCESS REMOVED WITHOUT COMPLICATION. LEFT THE UNIT VIA W/C IN STABLE CONDITION ASSISTED BY FLOOR BROILER CHEF OR COOK. RELEASED TO HIS FAMILY.
== END 2018-10-19 17:30 | disposition home or self-care (01) | DRG 920 ==
LOC: EDH 17:08 → EDHIP 20:24 → 3CH 10-13 05:05
PROVIDERS: ADMIT Internal Medicine Infectious Disease; ATTEND Internal Medicine Infectious Disease
PROC: 0JCC0ZZ Extirpation of Matter from Pelvic Region Subcutaneous Tissue and Fascia, Open Approach (ICD-10-PCS; principal; 2018-10-16 10:00)
DX: L76.32 Postprocedural hematoma of skin and subcutaneous tissue following other procedure (principal); L03.90 Cellulitis, unspecified; N39.0 Urinary tract infection, site not specified; L02.211 Cutaneous abscess of abdominal wall; I10 Essential (primary) hypertension; E11.51 Type 2 diabetes mellitus with diabetic peripheral angiopathy without gangrene; I25.10 Atherosclerotic heart disease of native coronary artery without angina pectoris; D64.9 Anemia, unspecified; G89.29 Other chronic pain; Y83.8 Other surgical procedures as the cause of abnormal reaction of the patient, or of later complication, without mention of misadventure at the time of the procedure; Y92.89 Other specified places as the place of occurrence of the external cause; I25.2 Old myocardial infarction; Z95.1 Presence of aortocoronary bypass graft; Z95.0 Presence of cardiac pacemaker; Z83.3 Family history of diabetes mellitus
CPT/HCPCS: 36415; 71045; 74177; 80053; 80202; 81001; 82948; 83605; 83735; 83880; 84484; 85025; 85027; 85610; 85730; 87040; 87077; 87088; 87186; 93005; 94640; G0378; J0330; J0690; J1885; J2250; J2370; J2543; J2704; J3010; J3370; J3490; J7030; J7040

== ENCOUNTER → 2019-06-03 | Outpatient (CLI) | payer OTHER ==
[~2019-06-03] MED LIST changes: +ACET1TAB12 PO
== END | disposition home or self-care (01) ==
LOC: RAH 09:25
PROVIDERS: ATTEND Surgery
DX: R18.8 Other ascites (principal); K40.90 Unilateral inguinal hernia, without obstruction or gangrene, not specified as recurrent; Z98.1 Arthrodesis status
CPT/HCPCS: 72192

== ENCOUNTER → 2019-10-22 | Outpatient (CLI) | payer OTHER | END | disposition home or self-care (01) | LOC: SHCH 10:31 | PROVIDERS: ATTEND Internal Medicine Cardiovascular Disease | DX: I08.2 Rheumatic disorders of both aortic and tricuspid valves (principal); I10 Essential (primary) hypertension | CPT/HCPCS: 93306; 93356 ==

== ENCOUNTER → 2020-07-06 | Outpatient (CLI) | payer OTHER ==
[~2020-07-06] MED LIST changes: -PANT40TA25 PO; +PANT40TA54 PO
== END | disposition home or self-care (01) ==
LOC: SHCH 08:02
PROVIDERS: ATTEND Internal Medicine Cardiovascular Disease
DX: I71.4 Abdominal aortic aneurysm, without rupture (principal); R09.89 Other specified symptoms and signs involving the circulatory and respiratory systems
CPT/HCPCS: 93880; 93978

== ENCOUNTER → 2021-04-02 | Outpatient (CLI) | payer OTHER ==
[~2021-04-02] MED LIST changes: +POTA-183 PO; -POTA10TA11 PO
[2021-04-02 12:08] LABS: CREATININE 1.2 mg/dL (0.5-1.5)
== END | disposition home or self-care (01) ==
LOC: LAB 10:24
PROVIDERS: ATTEND Internal Medicine Cardiovascular Disease
DX: I10 Essential (primary) hypertension (principal); I25.10 Atherosclerotic heart disease of native coronary artery without angina pectoris
CPT/HCPCS: 36415; 82565; 84520

== ENCOUNTER → 2021-04-09 | Outpatient (CLI) | payer OTHER ==
[~2021-04-09] MED LIST changes: +IOHEXOL-350 50ML VIAL IV ONE
== END | disposition home or self-care (01) ==
LOC: RAH 09:35
PROVIDERS: ATTEND Internal Medicine Cardiovascular Disease
DX: I65.23 Occlusion and stenosis of bilateral carotid arteries (principal); J90 Pleural effusion, not elsewhere classified
CPT/HCPCS: 70498; Q9967